=== PATIENT | female | born 1955 | race Caucasian/White ===

== ENCOUNTER → 2019-07-07 | Outpatient (CLI) | payer MEDICARE ==
[~2019-07-07] VITALS: Ht 172.7 cm; Wt 90.7 kg
[2019-07-07] VITALS (8 sets, daily range): BP systolic 90–117; BP diastolic 49–65
[~2019-07-07] MED LIST: DILTIAZEM ER180 M2 PO; NORCO 5-325 TA1 EAC1 PO; PROZAC40 MG PO; ZYRTEC10 M5 PO
[2019-07-07 10:28] LABS: HEMATOCRIT 38.8 % (37.0-47.0); HEMOGLOBIN 12.9 gm/dL (12.0-15.0); MCH 29.8 pg (26.0-34.0); MCHC 33.2 g/dL (28.0-37.0); MCV 89.8 fL (80.0-100.0); MPV 7.8 fl. (7.2-11.1); RBC 4.32 mil/uL (4.20-5.00); RDW-CV 13.7 % (10.5-14.5); WBC 12.6 thou/uL (4.0-11.0)
[2019-07-07 10:36] LABS: ANION GAP 12 mmol/L (7-16); BUN 33 mg/dL (7-18); CALCIUM 9.5 mg/dL (8.5-10.1); CHLORIDE 104 mmol/L (98-107); CO2 21 mmol/L (21-32); CREATININE 1.6 mg/dL (0.6-1.3); GLUCOSE 143 mg/dL (70-99); POTASSIUM 3.5 mmol/L (3.5-5.1); SODIUM 137 mmol/L (136-145)
[2019-07-07 10:38] LABS: SERUM ASSESSMENT Clear
[2019-07-07 10:41] LABS: CHOLESTEROL 221 mg/dL (<200); HDL CHOLESTEROL 59 mg/dL (>40); LDL CHOLESTEROL 152 mg/dL (<100); TC:HDL 3.7 Ratio (Not establshd); TRIGLYCERIDE 54 mg/dL (<150); VLDL 11 mg/dL (<40)
[2019-07-07 10:45] LABS: APTT 24.4 Seconds (25.0-31.3); PROTIME 10.1 Seconds (9.20-11.50)
--- NOTE | 2019-07-07 12:43 | CARD ---
[address] [address] CARDIAC CATH REPORT Name: IZAIAH HANSON Room: [facility] BETTYE Yaima#: [id number] Admission: 07/07/19 Attend Phys: Eddi Gonzales MD, Discharge: Date of : 53 Report #: [id number] THIS REPORT FOR: //name// APPROVED REPORT Study performed: 07/07/2019 10:52:24 Patient Details Patient Status: Out-Patient Room #: The patient is a 64 year-old female Event Personnel Richard Bullock RTR Monitor, Ivon Douglass RN RN, Eddi Gonzales [employer] Farmer, Elisabeth Goff RTR Scrub Procedures Performed Left Heart Cath w/or w/o Coronaries [id number] [facility] , Selective Right and Left Coronary Angiography Indication Chest pain Risk Factors Hypercholesterolemia Procedure Narrative The patient was brought electively to the Cardiac Catheterization Laboratory and was prepped and draped in a sterile manner. The right femoral was infiltrated with 2% Lidocaine subcutaneous anesthesia. A 6F Sheath sheath was inserted into the right femoral artery. Coronary angiography was performed using coronary diagnostic catheters. The right coronary system was accessed and visualized with a AR Mod 6fr catheter. The left coronary system was accessed and visualized with a JL4 catheter. The left ventricle was accessed and visualized with a PIG catheter. Left ventricular/Aortic Valve gradient assessed via catheter pullback. Pre-demployment femoral angiogram was performed . The patient tolerated the procedure well and there were no complications associated with the procedure. There was no hematoma. Intraoperative Conscious Sedation Fentanyl 75 mcg Dose: 542.77 mGy Contrast Type and Amount: Visipaque 75 [place] [address] CARDIAC CATH REPORT Name: MARGIEIZAIAH Room: [facility] RheaDanielÁngelDaniel#: [id number] Admission: 07/07/19 Attend Phys: Eddi Gonzales MD, Discharge: Date of : 53 Report #: [id number] Coronary Angiography The patient's coronary anatomy is right dominant. Diagnostic Cath Left Main 0% narrowing LAD 0% narrowing Circumflex 0% narrowing Right Coronary Dominant vessel with 0% narrowing Left Ventriculography Left Ventriculography was not performed. Hemodynamics The aortic pressure is 119/61 mmHg with a mean of 85 mmHg. The left ventricular pressure is 117/-5 mmHg with a mean of mmHg. The left ventricular end diastolic pressure is 11 mmHg. There was no gradient across the aortic valve upon pullback. Conclusion #1 normal coronary arteries #2 normal left-sided hemodynamics study Recommendations Cardiac Risk Reduction Program Diagnostic Cath Approved by: Eddi Gonzales MD Date/Time: 07/07/2019 12:42:51 <ELECTRONICALLY SIGNED> By: Eddi Gonzales MD, [facility] 07/07/19 1243 1243 1243John Augustin Gonzales MD, FACC /INF
--- NOTE | 2019-07-07 15:39 | EKG ---
[place] [address] ELECTROCARDIOGRAM REPORT Name: MARGIEIZAIAH Room: [facility]#: [id number] Admission: 07/07/19 Attend Phys: Eddi Gonzales MD, Discharge: Date of : 53 Report #: [id number] THIS REPORT FOR: //name// [facility] Test Date: 2019-07-07 Test Time: 10:21:53 Pat Name: IZAIAH HANSON Department: Room: Gender: F Sales Service Representative: : 1955 Requested By: Carrington Forte Order Number: [id number] Reading MD: Eddi Gonzales Measurements Intervals [place] Rate: 75 P: 54 RI: 188 QRS: 21 QRSD: 86 T: 38 QT: 367 QTc: 410 Interpretive Statements Sinus rhythm Low voltage, precordial leads Baseline wander in lead(s) V1,V2 No previous ECG available for comparison Electronically Signed On 07-07-2019 15:39:29 CABLE TELEVISION PROGRAM DIRECTOR by Eddi Gonzales [email or web address] <ELECTRONICALLY SIGNED> By: Eddi Gonzales MD, [facility] 07/07/19 1539 1021 102 Eddi Gonzales MD, FACC /EPI
--- NOTE | 2019-07-07 16:08 | 2DMMODE ---
[place] [address] 2 D/M-MODE ECHOCARDIOGRAM Name: HANSONIZAIAH Room: [facility]#: [id number] Admission: 07/07/19 Attend Phys: Rhea Herrera Discharge: Date of : 53 Date of Service: 07/07/19 1608 Report #: [id number] THIS REPORT FOR: //name// APPROVED REPORT Study performed: 07/07/2019 15:06:54 EXAM: Comprehensive 2D, Doppler, and color-flow Echocardiogram Patient Location: Out-Patient BSA: 2.04 HR: 54 bpm BP: 100/52 mmHg Other Information Study Quality: Fair Indications Chest Pain 2D Dimensions IVSd: 11.42 (7-11mm) LVOT Diam: 20.48 (18-24mm) LVDd: 44.99 mm PWd: 7.71 (7-11mm) Ascending Ao: 30.66 (22-36mm) LVDs: 27.50 (25-40mm) Aortic Root: 27.84 mm Volumes Left Atrial Volume (Systole) LA ESV Index: 12.60 mL/m2 Aortic Valve AoV Peak Frank.: 1.28 m/s AO Peak Gr.: 6.53 mmHg LVOT Max P.05 mmHg AO Mean Gr.: 3.56 mmHg LVOT Mean P.37 mmHg LVOT Max V: 1.33 m/s AO V2 VTI: 25.67 cm LVOT Mean V: 0.85 m/s KIESHA (VTI): 3.31 cm2 LVOT V1 VTI: 25.79 cm Mitral Valve E/A Ratio: 0.83 MV Decel. Time: 263.14 ms MV E Max Frank.: 0.65 m/s MV PHT: 76.31 ms MVA (PHT): 2.88 [place] [address] 2 D/M-MODE ECHOCARDIOGRAM Name: MARGIEIZAIAH Room: [facility]#: [id number] Admission: 07/07/19 Attend Phys: Rhea Herrera Discharge: Date of : 53 Date of Service: 07/07/19 1608 Report #: [id number] TDI E/Lateral E': 7.22 E/Medial E': 9.29 Medial E' Frank.: 0.07 m/s Lateral E' Frank.: 0.09 m/s Pulmonary Valve PV Peak Frank.: 0.91 m/s PV Peak Gr.: 3.30 mmHg Left Ventricle The left ventricle is normal size. There is normal LV segmental wall motion. There is normal left ventricular wall thickness. Left ventricular systolic function is normal. The left ventricular ejection fraction is within the normal range. LVEF is 60-65%. Grade I - abnormal relaxation pattern. Right Ventricle The right ventricle is normal size. The right ventricular systolic function is normal. Atria The left atrium size is normal. The right atrium size is normal. Aortic Valve The aortic valve is normal in structure. No aortic regurgitation is present. There is no aortic valvular stenosis. Mitral Valve The mitral valve is normal in structure. There is no mitral valve regurgitation noted. No evidence of mitral valve stenosis. Tricuspid Valve The tricuspid valve is normal in structure. There is no tricuspid valve regurgitation noted. Pulmonic Valve The pulmonary valve is normal in structure. There is no pulmonic valvular regurgitation. Great Vessels The aortic root is normal in size. IVC is normal in size and collapses >50% with inspiration. Pericardium There is no [place] [address] 2 D/M-MODE ECHOCARDIOGRAM Name: IZAIAH HANSON Room: [facility]#: [id number] Admission: 07/07/19 Attend Phys: Rhea Herrera Discharge: Date of : 53 Date of Service: 07/07/19 1608 Report #: [id number] <Conclusion> The left ventricle is normal size. There is normal left ventricular wall thickness. Left ventricular systolic function is normal. The left ventricular ejection fraction is within the normal range. LVEF is 60-65%. Grade I - abnormal relaxation pattern. The right ventricle is normal size. The left atrium size is normal. The aortic valve is normal in structure. The mitral valve is normal in structure. The tricuspid valve is normal in structure. There is no pericardial effusion. There is normal LV segmental wall motion. <ELECTRONICALLY SIGNED> By: Eddi Gonzales MD, [facility] 07/07/19 1608 1608 1608 Eddi Gonzales MD, [facility] /INF
== END | disposition home or self-care (01) ==
LOC: M.CL 09:17
PROVIDERS: Internal Medicine Cardiovascular Disease
DX: R07.9 Chest pain, unspecified (principal); I10 Essential (primary) hypertension; E78.00 Pure hypercholesterolemia, unspecified; G62.9 Polyneuropathy, unspecified; R53.82 Chronic fatigue, unspecified; N28.9 Disorder of kidney and ureter, unspecified; Z98.890 Other specified postprocedural states; Z90.710 Acquired absence of both cervix and uterus; Z88.8 Allergy status to other drugs, medicaments and biological substances; Z91.041 Radiographic dye allergy status; Z79.899 Other long term (current) drug therapy